=== PATIENT | male | born 1945 ===

== ENCOUNTER 2019-04-29 00:58 | Inpatient (IN) | payer MEDICARE ==
[2019-04-28 14:59] LABS: INR 0.96
[2019-04-29] VITALS (14 sets, daily range): BP systolic 99–145; BP diastolic 54–76
[~2019-04-29] VITALS: Ht 165.1 cm; Wt 67.6 kg
[~2019-04-29 00:58] MED LIST: TAMS0.4C25 PO
--- NOTE | 2019-04-29 02:06 | LEVENE H&P ---
DATE OF ADMISSION: April 29, 2019 IDENTIFICATION/CHIEF COMPLAINT Manjit is a 73-year-old gentleman with chief complaint of right hip pain. HISTORY OF PRESENT ILLNESS Patient has a longstanding history of hip arthritis, progressively painful and debilitating, refractory to conservative care. Surgery is indicated to relieve symptoms after failure of nonoperative measures. PAST MEDICAL HISTORY Notable for generally excellent health. PAST SURGICAL HISTORY Notable for treatment of a broken arm. Otherwise negative. CURRENT MEDICATIONS Flomax, one tablet p.o. daily. ALLERGIES He has no known drug allergies. REVIEW OF SYSTEMS Notable for an enlarged prostate. SOCIAL HISTORY Negative for tobacco use. He drinks a rare beer, denies alcohol abuse or drug use. FAMILY HISTORY Noncontributory. PHYSICAL EXAMINATION GENERAL: This is a well-developed, well-nourished male who appears stated age. HEENT: Normocephalic, atraumatic. NECK: Supple. . LUNGS: Clear. HEART: Regular. ABDOMEN: Soft. ORTHOPEDIC: The right hip is stable to limited motion. Hip girdle strength is normal. Skin envelope is intact. Calves nontender. Neurovascular function intact. Combined flexion and rotation reproduces pain. RADIOGRAPHIC STUDIES Radiographs demonstrate end-stage hip arthritis. ASSESSMENT Right hip end-stage degenerative joint disease, progressively painful and debilitating, refractory to conservative care. PLAN Per patient request, we are going to proceed with total hip arthroplasty. Nature of the procedure, risks, benefits, and the anticipated rehab course are reviewed. The risks include but are not limited to , major medical or anesthetic complication, infection, neurovascular injury, blood transfusion, stiffness, scarring, fracture, tendon rupture, leg length discrepancy, instability, implant loosening/migration/failure, persistent or recurrent pain, need for additional surgery, and other unforeseen. He understands and wishes to proceed. Signed permit is placed in the chart. No guarantees are given or implied. [facility]
[2019-04-29] MEDS ORDERED: PREGABALIN 75 MG CAPSULE PO ONE (08:30)
[2019-04-29] MEDS ORDERED: MIDAZOLAM 2 MG/2 ML VIAL IVP PRN (08:30)
[2019-04-29] MEDS ORDERED: ROPIVACAINE/EPI/CLONIDINE/KET 50 ML SYRINGE INJ ONE (08:30)
[2019-04-29] MEDS ORDERED: ceFAZolin(*) 1 GM VIAL 1 GM in NS(*) 0.9% 100 ML MINI-BAG 100 ML IVPB ONE (08:30)
[2019-04-29] MEDS ORDERED: NORMOSOL R SOLN(*) 1000 ML BAG 1,000 ML IV PRN ×2 (08:30→12:20)
[2019-04-29] MEDS ORDERED: TRANEXAMIC AC 1000 MG/10ML SDV 1,000 MG in DEXTROSE 5% 50 ML BAG 50 ML IV ONE (08:30)
[2019-04-29] MEDS ORDERED: ACETAMINOPHEN 500 MG TAB PO ONE (08:30)
[2019-04-29] MEDS ORDERED: LIDOCAINE/SOD BICARB 8.4% SYR ID ONE (08:30)
[2019-04-29] MEDS ORDERED: FAMOTIDINE 20 MG TAB PO ONE (08:30)
[2019-04-29] MEDS ORDERED: CELECOXIB 200 MG CAP PO ONE (08:30)
[2019-04-29] MEDS ORDERED: SENN-228 PO (08:40)
[2019-04-29] MEDS ORDERED: DOXA4TAB58 PO (08:44)
[2019-04-29] MEDS ORDERED: VANCOMYCIN 1 GM VIAL ONE ×2 (09:11→10:04)
[2019-04-29] MEDS ORDERED: PHENYLEPHRINE 10 MG/1 ML VIAL ONE (10:17)
[2019-04-29] MEDS ORDERED: ceFAZolin 1 GM VIAL ONE (10:31)
[2019-04-29] MEDS ORDERED: PROPOFOL EMUL(*) 10MG/ML 20 ML 20 ML ONE (11:48)
[2019-04-29] MEDS ORDERED: DEXAMETHASONE SOD PHOS 10MG/ML ONE (11:48)
[2019-04-29] MEDS ORDERED: ONDANSETRON 4 MG/2 ML VIAL ONE (11:48)
[2019-04-29] MEDS ORDERED: BENZOCAINE/MENTHOL 1 EACH LOZG PO PRN (12:20)
[2019-04-29] MEDS ORDERED: diphenhydrAMINE 50 MG/ML VIAL IVP PRN (12:20)
[2019-04-29] MEDS ORDERED: ACETAMINOPHEN 325 MG TAB PO PRN (12:20)
[2019-04-29] MEDS ORDERED: FLUSH 10 ML SYR IVP PRN (12:20)
[2019-04-29] MEDS ORDERED: BISACODYL 10 MG SUPP PR PRN (12:20)
[2019-04-29] MEDS ORDERED: MAGNESIUM HYDROXIDE* 30ML UDCP PO PRN (12:20)
[2019-04-29] MEDS ORDERED: DIAZEPAM 5 MG TAB PO PRN (12:20)
[2019-04-29] MEDS ORDERED: PROMETHAZINE 25 MG/ML 1 ML AMP IVP PRN (12:20)
[2019-04-29] MEDS ORDERED: diphenhydrAMINE 25 MG CAP PO PRN (12:20)
[2019-04-29] MEDS ORDERED: ZOLPIDEM TARTRATE 5 MG TAB PO PRN (12:20)
[2019-04-29] MEDS ORDERED: APAP/HYDROCODONE 325/7.5 TAB PO PRN (12:20)
[2019-04-29] MEDS ORDERED: HYDR-654 PO (12:35)
--- NOTE | 2019-04-29 13:49 | RADIOLOGY IMAGING REPORT ---
FACILITY: [facility] [place] PATIENT NAME: Manjit Valdez : 1945 MR: [id number] V: [id number] EXAM DATE: ORDERING PHYSICIAN: NITISH MCNEILL TECHNOLOGIST: Location: [facility] Patient: Manjit Valdez : 1945 Visit/Account:[id number] Date of Sevice: 04/29/2019 Exam type: PELVIS History: S/P RIGHT TOTAL HIP ARTHROPLASTY Comparison: None. Findings: Single AP view the pelvis demonstrates a right hip arthroplasty in good anatomic alignment on this si ngle AP view. Soft tissue gas projects right hip on this postoperative study IMPRESSION: 1. As above Report Dictated By: Liss Malik MD at 04/29/2019 1:41 PM Report E-Signed By: Liss Malik MD at 04/29/2019 1:42 PM WSN:[id number]
--- NOTE | 2019-04-29 14:09 | Hospitalist Consultation ---
History of Present Illness Requesting Physician Dr. Cedillo Reason for Consult BPH Chief Complaint s/p right hip replacement History of Present Illness He was admitted s/p right hip replacement. It is reported the surgery went well and without complication. History Problems: (1) BPH (benign prostatic hyperplasia) Status: Chronic Home Meds Reported Medications Hydrocodone Bit/Acetaminophen (NORCO 7.5-325 TABLET) 1 Each Tablet, 1-2 EACH PO Q4-8H PRN for PAIN, #42 0 Refills 04/29/19 Doxazosin Mesylate (DOXAZOSIN MESYLATE) 4 Mg Tablet, 4 MG PO QDAY 04/29/19 Sennosides/Docusate Sodium (Senna-Docusate Sodium Tablet) 1 Each Tablet, 1 TAB PO QDAY 04/29/19 Tamsulosin Hcl (FLOMAX) 0.4 Mg Cap.er.24h, 0.4 MG PO QHS, CAP 04/23/19 Allergies: Coded Allergies: No Known Drug Allergies (Unverified , 04/23/19) Patient History: Bladder problems FATHER, FH: stroke MOTHER, Hx Smoking: No Smoking Status: Never Smoker Caffeine Intake: Coffee Caffeine/Cups Per Day: 1X/DAY Hx Alcohol Use: Yes Alcohol Used: Beer Hx Substance Use Disorder: No Social Drug Use: Never History of IV Drug Use: No Review of Systems All Systems Reviewed/Normal: Yes, Except as Noted Exam Vital Signs Vital Signs Date Time Temp Pulse Resp B/P (MAP) Pulse Ox O2 Delivery O2 Flow Rate FiO2 04/29/19 13:31 97.3 57 12 121/61 (81) 98 Nasal Cannula 2.0 General Appearance: Alert, Awake, No Acute Distress, Afebrile Neuro: No Gross deficits Cardiovascular: Regular Rate and Rhythm Respiratory: No Respiratory Distress, Clear to Auscultation Psych: Alert & Oriented X3, Appropriate Mood & Affect Assessment and Plan Problems: (1) Status post right hip replacement Status: Acute Assessment & Plan: Followed by Dr. Cedillo. He will be placed on Aspirin for DVT prophylaxis. He has no history of DVT. (2) BPH (benign prostatic hyperplasia) Status: Chronic Assessment & Plan: Continue chronic Flomax and Doxazosin. Venous Thromboembolism Antithrombotics Is Pt On Any Antithrombotics?: No JORDON DAVIS Apr 29, 2019 14:09
--- NOTE | 2019-04-29 16:57 | NUR ---
Physical Therapy Impression PT eval completed. Pt ambualted to/from doorway of room but declined to attempt toileting. Pt was SBA with verbal cues and demo to complete bed mobility to R) side safely. No c/o of nausea or dizziness and VS WNL at end of session. Physical Therapy Goals 1. Pt to be modified indep with bed mobility and sup<>sit trnfrs 2. Pt to be modified indep with sit to/from stand transfers 3. Pt to be modified indep with ambulation x 100' and use of least restrictive device for pt's home environment. 4. Pt to complete up/down 4 steps with rail and single crutch with SBA Patient's Goals
[2019-04-29] MEDS ORDERED: NS(*) 0.9% 250 ML BAG 250 ML ONE (17:36)
[2019-04-29] MEDS: ceFAZolin(*) 1 GM VIAL 1 GM in NS(*) 0.9% 100 ML MINI-BAG 100 ML IVPB SCH (17:43)
[2019-04-29] MEDS: CELECOXIB 200 MG CAP PO SCH (17:43)
--- NOTE | 2019-04-29 17:57 | NUR ---
Patient unsure of dosages of medications. Provider notified of partial completion of med rec. Addendum: 04/29/19 at 1757 by FRANCISCA ORDAZ RN Amended: Links added.
[2019-04-29] MEDS ORDERED: TAMSULOSIN HCL 0.4 MG CAP PO SCH (21:00)
[2019-04-30] MEDS: ceFAZolin(*) 1 GM VIAL 1 GM in NS(*) 0.9% 100 ML MINI-BAG 100 ML IVPB SCH ×2 (01:11→09:30)
[2019-04-30 03:16] VITALS: BP 101/55
--- NOTE | 2019-04-30 05:01 | OPERATIVE REPORT 1 ---
EVENT DATE: April 29, 2019 SURGEON: Fabian Cedillo MD ANESTHESIOLOGIST: Corky Sands MD ANESTHESIA: General plus spinal. DATABASE REPORT WRITER: LATA Fairchild PREOPERATIVE DIAGNOSIS Right hip degenerative joint disease. POSTOPERATIVE DIAGNOSIS Right hip degenerative joint disease. PROCEDURE PERFORMED Right total hip arthroplasty. ESTIMATED BLOOD LOSS 200 mL. DRAINS None. SPECIMENS None. COMPLICATIONS None apparent. IMPLANTS USED The [employer] system with a Trident PSL NICHOLAS-cluster acetabular shell, size 54; Trident X3 0-degree polyethylene liner to accommodate a 36 mm head; Accolade 468-[id number]-[id number]-angle hip stem size 5, and a Biolox Delta ceramic V40 femoral head, 36 mm/+2.5 neck length. INDICATIONS FOR PROCEDURE Manjit has intractable pain and disability related to end-stage hip arthritis. Surgery is indicated to relieve symptoms after failure of nonoperative measures. DESCRIPTION OF PROCEDURE Patient was taken to the operating room and placed supine on the operating table. Spinal block was administered by the anesthesiologist. General anesthesia was induced. Antibiotics were administered IV. Patient was positioned in the left lateral decubitus on a well-padded peg board. Pelvis was secured in a vertical position. All bony prominences and superficial nerves were well padded. Right hip, groin and lower extremity were prepped and draped in the usual sterile fashion for hip arthroplasty. A small incision with posterolateral approach was made, carried down through the skin and subcutaneous tissue to the deep fascia. The fascia was incised over the tip of the trochanter, extended distally in line with the femur, proximally in line with the colin fibers. Colin fibers were split bluntly. Trochanteric bursa was excised. Interval between the abductor and external rotators was identified, and the abductor mechanism was protected with a blunt Hohmann. The capsule was incised with an L capsulotomy with the horizontal limb above the piriformis. The capsule and external rotators were peeled off the femur posteriorly, tagged with #2 Vicryl for later anatomic reattachment. The femoral head was dislocated. End-stage arthritic changes were noted. About a 1.5 cm neck cut was made, consistent with preoperative planning. Femoral head was extracted. Femur was translocated anteriorly. A periacetabular retractor was placed with the tips down on bone. A 44 mm reamer was used to medialize to the true medial wall of the acetabulum after removing pulvinar and labrum. It was expanded in 2 mm increments up to 54, where nice rim contact was obtained. A trial 54 had nice [id number] fit. A 55 was used to open the throat of the acetabulum and to accommodate the raised-rim liner, and the actual shell was then impacted into the cleaned, prepared bony bed in approximately 45 degrees of lateral opening and 15 to 20 degrees of anteversion using the transverse acetabular ligament, internal bony landmarks, and extracorporeal guide to guide socket placement. Rock-solid fixation was achieved. No adjuvant fixation was felt to be needed. The liner was locked into the iojvijh-amg-nnfay shell. Attention was turned to femoral preparation. Superior neck was resected with a cookie cutter. Miah awl found the canal. Tapered broaching was performed up to a size 5, where a nice solid fixation was achieved without subsidence. A calcar reamer smoothed the edges. Trial reduction was performed with various neck lengths. Good druze of soft tissue tension, limb length and stability were achievable with this construct. The broach was extracted. The actual was seated, seats at about the same height. Trial reduction was performed with various neck lengths. A +2.5 was felt to be optimal for druze of soft tissue tension, stability and limb length. Lopez taper was lavaged and dried. The actual Biolox head was impacted into position on the Lopez taper. The joint was reduced. The wound was copiously lavaged including IrriSept, followed by saline. The external rotators and capsule were closed with a #2 Vicryl passed through drill holes in the posterior femur. The deep fascia was closed distally with #2 Ethibond. Vancomycin powder was placed deep in the wound proximally. The colin fascia was closed with #2 Vicryl. The subcu was closed with 3-0 Vicryl, skin with 4-0 Monocryl and a Prineo Dermabond dressing, Xeroform, 4x4s, dry sterile dressing, and hip wrap. Patient was rolled supine and an abduction pillow was placed. He was awakened from anesthesia and taken to the recovery room, having tolerated the procedure well. Plan is for standard [facility] rehab protocol. [facility]ITALK[facility]
[2019-04-30 06:50] VITALS: BP 98/55
--- NOTE | 2019-04-30 06:52 | Hospitalist Progress Note ---
Subjective Progress Notes Subjective Doing very well with good pain control. Up to BR without difficulty. Did require bladder cath last night x1 but has voided on his own since then. Physical Exam Vital Signs Date Time Temp Pulse Resp B/P (MAP) Pulse Ox O2 Delivery O2 Flow Rate FiO2 04/30/19 04:14 87 04/30/19 03:16 97.7 63 16 101/55 (70) Room Air 04/29/19 17:00 1.0 Intake and Output 04/30/19 07:02 Intake Total 2109 ml Output Total 400 ml Balance 1709 ml Intake IV Total 2109 ml Output Urine Total 400 ml # Voids 2 General Appearance: Alert, Awake, No Acute Distress, Afebrile Cardiovascular: Regular Rate and Rhythm, Other (S1S2 are normal. No murmur, gallops or rubs.) Respiratory: Clear to Auscultation GI: Soft and Non-Tender Extremities: Soft and Non Tender, Warm, Pulses, Perfused Psych: Alert & Oriented X3, Appropriate Mood & Affect Assessment and Plan Problems: (1) Status post right hip replacement Status: Acute Assessment & Plan: Followed by Dr. Cedillo. On Aspirin for DVT prophylaxis. He has no history of DVT. Pain control is good. PT to start today. O2 sats low on RA. Instructed as to proper use of the inspirometer. (2) BPH (benign prostatic hyperplasia) Status: Chronic Assessment & Plan: Continue chronic Flomax and Doxazosin. Did require cath x1 but has voided since then. Time Spent on Plan of Care: < 30 min Exam Sepsis Risk: No Definite Risk KAE POTTER MD FACP Apr 30, 2019 06:52
[2019-04-30] MEDS: CELECOXIB 200 MG CAP PO SCH (08:14)
[2019-04-30] MEDS ORDERED: ASPIRIN 325 MG TAB PO SCH (09:00)
[2019-04-30] MEDS ORDERED: DOXAZOSIN MESYLATE 2 MG TAB PO SCH (09:00)
[2019-04-30 09:33] VITALS: BP 106/61
[2019-04-30 11:38] VITALS: BP 104/61
--- NOTE | 2019-04-30 12:13 | NUR ---
Physical Therapy Impression Pt has met all goals and from a mobility standpoint is ready for discharge. Physical Therapy Goals 1. Pt to be modified indep with bed mobility and sup<>sit trnfrs 2. Pt to be modified indep with sit to/from stand transfers 3. Pt to be modified indep with ambulation x 100' and use of least restrictive device for pt's home environment. 4. Pt to complete up/down 4 steps with rail and single crutch with SBA Patient's Goals
[2019-04-30] MEDS ORDERED: HYDR-654 PO (12:30)
== END 2019-04-30 13:00 | disposition home or self-care (01) | DRG 470 ==
LOC: OR 00:58 → MED 13:25
PROVIDERS: ADMIT Orthopaedic Surgery; ATTEND Orthopaedic Surgery
PROC: 0SR904A Replacement of Right Hip Joint with Ceramic on Polyethylene Synthetic Substitute, Uncemented, Open Approach (ICD-10-PCS; principal; 2019-04-29 09:39)
DX: M16.11 Unilateral primary osteoarthritis, right hip (principal); N40.0 Benign prostatic hyperplasia without lower urinary tract symptoms
CPT/HCPCS: 36415; 72170; 85610; 86850; 86900; 86901; 97161; 97165; C1776; J0690; J1100; J2250; J2370; J2405; J2704; J3370; J7060